=== PATIENT | female | born 1980 | race Caucasian/White ===

== ENCOUNTER 2016-12-14 21:35 | Observation (INO) | payer SELFPAY ==
[~2016-12-14] VITALS: Ht 170.2 cm; Wt 163.6 kg
[2016-12-14 23:00] LABS: BASOPHILS 0.3 % (0-2); HEMATOCRIT 40.1 % (36.0-48.0); HEMOGLOBIN 13.6 g/dL (12-16); IMMATURE GRANULOCYTES 0.4 % (0-5); LYMPHOCYTES 39.2 % (15-50); MCH 31.7 pg (26.0-34.0); MCHC 33.9 g/dL (31.0-37.0); MCV 93.5 fL (80.0-100.0); MEAN PLATELET VOLUME 9.8 fL (7.4-10.4); NEUTROPHILS 44.1 % (40-80); PLATELET COUNT 193 10x3/uL (130-400); RBC 4.29 10x6/uL (4.00-5.40); RDW 12.6 % (11.5-14.5); WBC 7.6 10x3/uL (4.8-10.8)
[2016-12-14 23:21] LABS: ALBUMIN 3.7 g/dL (3.4-5.0); ALKALINE PHOSPHATASE 45 U/L (46-116); ALT (SGPT) 101 U/L (10-68); BILIRUBIN - TOTAL 0.59 mg/dL (0.2-1.3); CALC OSMOLALITY 281 mosm/kg (275-300); CARBON DIOXIDE 30.3 mmol/L (21.0-32.0); CHLORIDE - SERUM 102 mmol/L (98-107); CREATININE - SERUM 0.9 mg/dL (0.6-1.3); GLUCOSE 143 mg/dL (74-106); POTASSIUM - SERUM 3.1 mmol/L (3.5-5.1); SODIUM 141 mmol/L (136-145); UREA NITROGEN 10 mg/dL (7-18); eGFR NON AFRICAN AMERICAN 75 mL/min (90-120)
[2016-12-14 23:28] LABS: CREATINE KINASE 77 UL (21-215); PRO BNP 33 pg/mL (0-125)
[2016-12-14 23:29] LABS: TROPONIN-I < 0.017 ng/mL (0.000-0.060)
--- NOTE | 2016-12-15 01:37 | NUR ---
REC FROM ER VIA WC. ALERT/ORIENTED X 4. AMBULATED TO BED WITH STEADY GAIT. IV IN RT ARM INTACT SL. C/O HEADACHE FROM NITRO GIVEN IN ER. ON 02 AT 2L/NC, RR 20 EVEN U/L. DENIES CHEST PAIN OR ANY OTHER DISCOMFORTS. ORIENTED TO ROOM AND CALL LIGHT.
--- NOTE | 2016-12-15 02:30 | NUR ---
ADMIN TYLENOL 650 MG PO PER ORDER FROM DR SAENZ FOR C/O HEADACHE.
[2016-12-15 02:36] VITALS: BP 100/59; Ht 170.2 cm; Wt 163.6 kg
--- NOTE | 2016-12-15 03:30 | NUR ---
RESTING QUIETLY ON RIGHT SIDE WITH EYES CLOSED. RR 16 EVEN U/L. NO S/S OF PAIN OR DISCOMFORT. CL IN REACH.
[2016-12-15] MEDS ORDERED: SYNTHROID125 MCG PO (03:57)
[2016-12-15] MEDS ORDERED: ZESTRIL40 MG PO (03:58)
[2016-12-15] MEDS ORDERED: HYDROCHLOROTH12.5 M1 PO (03:58)
[2016-12-15 06:16] LABS: CKMB 0.3 U/L (0.0-3.6); CREATINE KINASE 63 UL (21-215); TROPONIN-I < 0.017 ng/mL (0.000-0.060)
[2016-12-15 08:00] VITALS: BP 115/58
[2016-12-15 10:25] LABS: CKMB 0.3 U/L (0.0-3.6); CREATINE KINASE 56 UL (21-215)
[2016-12-15 10:26] LABS: TROPONIN-I < 0.017 ng/mL (0.000-0.060)
--- NOTE | 2016-12-15 11:35 | NUR ---
ALERT AND ORIENTED X4. DISCHARGE INSTRUCTIONS GIVEN VERBALLY AND WRITTEN. DISCHARGE PAPERS SIGNED ON CHART. DC RT AC IV TIP INTACT. REFUSES WHEELCHAIR ESCORT. AMBULATES TO RIDE INDEPENDENTLY. REMAINS FREE FROM INJURY.
== END 2016-12-15 11:39 | disposition home or self-care (01) ==
LOC: D.ER 21:35 → D.M2 12-15 01:26 → OBSVTIME 12-15 01:26 → D.M2 12-15 11:39
PROVIDERS: Emergency Medicine; ADMIT Internal Medicine Cardiovascular Disease
DX: R07.89 Other chest pain (principal); R12 Heartburn; K21.9 Gastro-esophageal reflux disease without esophagitis; E11.9 Type 2 diabetes mellitus without complications; I10 Essential (primary) hypertension

== ENCOUNTER 2019-06-02 18:28 | Emergency (ER) | payer MEDICARE ==
[~2019-06-02] VITALS: Ht 170.2 cm; Wt 175.5 kg
[~2019-06-02 18:28] MED LIST: HYDROCHLOROTH12.5 M1 PO; SYNTHROID125 MCG PO; ZESTRIL40 MG PO
[2019-06-02 18:32] VITALS: Ht 170.2 cm; Wt 175.5 kg
[2019-06-02 18:56] LABS: BASOPHILS 0.2 % (0-2); EOSINOPHILS 8.9 % (0-7); HEMATOCRIT 40.4 % (36.0-48.0); HEMOGLOBIN 13.3 g/dL (12-16); IMMATURE GRANULOCYTES 0.6 % (0-5); MCH 31.7 pg (26.0-34.0); MCHC 32.9 g/dL (31.0-37.0); MCV 96.2 fL (80.0-100.0); MEAN PLATELET VOLUME 9.5 fL (7.4-10.4); MONOCYTES 7.3 % (2-11); PLATELET COUNT 162 10x3/uL (130-400); RDW 13.5 % (11.5-14.5); WBC 8.1 10x3/uL (4.8-10.8)
[2019-06-02 19:08] LABS: CALC OSMOLALITY 283 mosm/kg (275-300); CALCIUM 8.8 mg/dL (8.5-10.1); CHLORIDE - SERUM 104 mmol/L (98-107); CREATININE - SERUM 0.9 mg/dL (0.6-1.3); POTASSIUM - SERUM 3.7 mmol/L (3.5-5.1); SODIUM 143 mmol/L (136-145); UREA NITROGEN 11 mg/dL (7-18); eGFR NON AFRICAN AMERICAN 75 mL/min (90-120)
[2019-06-02 19:09] LABS: APTT 34.5 SECONDS (22.8-39.4); INR 0.99 (0.85-1.17); PROTIME 12.6 SECONDS (11.6-15.0)
[2019-06-02 19:10] LABS: GLUCOSE 93 mg/dL (74-106)
[2019-06-02 19:24] LABS: ALBUMIN 3.8 g/dL (3.4-5.0); ALKALINE PHOSPHATASE 52 U/L (46-116); ALT (SGPT) 101 U/L (10-68); BILIRUBIN - TOTAL 0.52 mg/dL (0.2-1.3); CKMB 1.6 U/L (0.0-3.6); CREATINE KINASE 148 UL (21-215); MAGNESIUM - SERUM 2.1 mg/dL (1.8-2.4); TROPONIN-I < 0.017 ng/mL (0.000-0.060)
[2019-06-02] MEDS ORDERED: VISTARIL25 MG PO (20:39)
[2019-06-02 21:07] VITALS: BP 126/85
== END 2019-06-02 21:08 | disposition home or self-care (01) ==
LOC: D.ER 18:28
PROVIDERS: Family Medicine
DX: I10 Essential (primary) hypertension (principal); F41.9 Anxiety disorder, unspecified; Z91.14 Patient's other noncompliance with medication regimen; E11.9 Type 2 diabetes mellitus without complications; E03.9 Hypothyroidism, unspecified; I20.9 Angina pectoris, unspecified